=== PATIENT | male | born 1940 | race Caucasian/White ===

== ENCOUNTER → 2017-11-08 11:00 | Outpatient (POV) | payer MEDICARE, SELFPAY | PROVIDERS: Family Provider Family Medicine; Visit Provider Internal Medicine | DX: Z00.00 Encounter for general adult medical examination without abnormal findings (principal) ==

== ENCOUNTER → 2019-04-11 11:02 | Outpatient (CLI) | payer MEDICARE, SELFPAY ==
--- NOTE | 2019-04-11 11:22 | XR_ITS ---
PROCEDURE: XR CHEST 2V CLINICAL HISTORY: CHEST DISCOMFORT COMPARISON: CXR CHEST(2 VIEWS-NOT PORTABLE) from 12/01/2016 FINDINGS: Prior CABG. Normal heart size. Chronic interstitial changes. No lobar consolidation or collapse. Old left-sided rib fractures of the left 5th and 6th rib. Previously noted pleural based density on the previous exam is not apparent on today's study. IMPRESSION: Chronic changes, no acute finding Dictated by: Donn Gracia MD 04/12/2019 14:00 Electronically signed by Donn Garcia MD in [place] 04/12/2019 14:00
--- NOTE | 2019-04-11 11:22 | XR_ITS ---
PROCEDURE: XR CERVICAL SPINE 5V CLINICAL INDICATION: STIFF NECK Neck pain COMPARISON: No exams were available for comparison FINDINGS: There degenerative disc disease at C4-C5 C5-C6 C6-C7 and C7-T1. There is mild anterolisthesis of C7 on T1 of 2-3 mm. Mild facet arthritic changes are present from C2 to C7. Foraminal narrowing is present on the right at C4-5 and C5-C6. No fracture or dislocation. No lytic or blastic change. Incidental carotid artery calcifications are present. IMPRESSION: Cervical spondylosis with degenerative disc disease with mild right foraminal narrowing at C4-C5 and C5-C6 Dictated by: Donn Garcia MD 04/12/2019 13:59 Electronically signed by Donn Garcia MD in [place] 04/12/2019 13:59
== END ==
PROVIDERS: PCP Family Medicine; Visit Provider Family Medicine
DX: R07.89 Other chest pain (principal)
CPT/HCPCS: 71046; 72050

== ENCOUNTER → 2019-04-17 12:33 | Outpatient (CLI) | payer MEDICARE, SELFPAY ==
--- NOTE | 2019-04-17 12:35 | CT_ITS ---
PROCEDURE: CT ABDOMEN W CON CLINICAL HISTORY: WGT LOSS, ABD PAIN Mid epigastric pain, nausea, weight loss COMPARISON: No exams were available for comparison TECHNIQUE: 75 mL Optiray 350 performed in conjunction with the chest CT Axial images obtained with sagittal and coronal reformats. All CT scans at the facility use one or more dose reduction, viz: automated exposure control, ma/kV adjustment per patient size (including targeted exams where dose is matched to indication, i.e. head), or iterative reconstruction technique. FINDINGS: There is a small hiatal hernia. The liver, spleen, adrenal glands, and pancreas have an unremarkable appearance. There is a small gallstone present at approximately 5 mm. 8 mm right renal cyst and a 2 cm right parapelvic renal cyst. No intestinal obstruction or free air. No retroperitoneal or intraperitoneal adenopathy.. Mild degenerative changes of the lumbar spine. The pelvis is not included on the exam. IMPRESSION: 1. Small hiatal hernia. 2. Cholelithiasis Dictated by: Donn Garcia MD 04/18/2019 11:25 Electronically signed by Donn Garcia MD in [place] 04/18/2019 11:25
--- NOTE | 2019-04-17 12:35 | CT_ITS ---
PROCEDURE: CT CHEST W CON CLINICAL HISTORY: Chest pain, cough, weight loss COMPARISON: No exams were available for comparison TECHNIQUE: 75 mL Optiray 350 performed in conjunction with the chest CT Axial images obtained with sagittal and coronal reformats. All CT scans at the facility use one or more dose reduction, viz: automated exposure control, ma/kV adjustment per patient size (including targeted exams where dose is matched to indication, i.e. head), or iterative reconstruction technique. FINDINGS: Prior CABG. No mediastinal or hilar mass or adenopathy. No evidence of aortic aneurysm or central pulmonary embolus. There is extensive coronary artery calcification. No pericardial effusion. There is hyperinflation with bronchial thickening and there is diffuse prominence of the pulmonary interstitium with a few scattered noncalcified pulmonary nodules and calcified pulmonary nodules also noted. The noncalcified nodules measure up to 7 mm in the right upper lobe centrally and 6 mm in the right middle lobe. Multiple noncalcified nodules are present on the left as well measuring up to 7 mm along the major fissure inferiorly and 6 mm in the superior segment of the left lower lobe. Patchy infiltrate is present in the right lower lobe posteriorly. No effusions are evident. No acute bony anomalies. There is a small hiatal hernia IMPRESSION: . 1. Are multiple bilateral pulmonary nodules which are 7 mm or less. These are non-specific and could be inflammatory/infectious or neoplastic. Suggest 3 month follow-up to confirm short term stability. 2. COPD with chronic interstitial changes. 3. Patchy infiltrate in the right lower lobe Dictated by: Donn Garcia MD 04/18/2019 11:32 Electronically signed by Donn Garcia MD in [place] 04/18/2019 11:32
== END ==
PROVIDERS: PCP Family Medicine; Visit Provider Family Medicine
DX: R10.9 Unspecified abdominal pain (principal); R63.4 Abnormal weight loss
CPT/HCPCS: 71260; 74160; Q9967

== ENCOUNTER → 2020-02-22 09:40 | Outpatient (CLI) | payer MEDICARE, SELFPAY ==
[2020-02-22 14:24] LABS: Coronavirus 19 IgG Antibody Negative (Negative); Coronavirus 19 IgM Antibody Negative (Negative)
== END ==
PROVIDERS: Visit Provider Internal Medicine Gastroenterology
DX: Z01.818 Encounter for other preprocedural examination (principal); Z12.11 Encounter for screening for malignant neoplasm of colon
CPT/HCPCS: 36415; 86328

== ENCOUNTER 2020-02-25 06:57 | Day surgery (SDC) | payer MEDICARE, SELFPAY ==
[2020-02-25 07:16] VITALS: BP 155/76; PULSE 77; RESP 20; TEMP 36.4; O2SAT 97
--- NOTE | 2020-02-25 07:46 | HMH.ANESCL ---
[facility] Anesthesia Checklist - Structural Data Admitted From: Home Planned Operative Procedure/s: olonoscopy Consent for Planned Operative Procedure(s) Verified: Yes - Additional verifications Anesthesia Reactions: No - Airway Assessment C-Spine Mobility Assessed: Yes TMJ Mobility Assessed: Yes Dentition: Good Dentition - Neurological Assessment Level of Consciousness: Awake, Alert, Appropriate - Anesthesia Plan Anesthesia Risk discussed: Yes Anesthesia Plan: Verified ASA Class: III Anesthesia Type: MAC [facility] History I have reviewed the patient's past medical history: Yes Medical History: Reports:: Cancer (prostate), Coronary Artery Disease, Hyperlipidemia, Hypertension, Lung Disease (COPD) Denies:: Diabetes Mellitus Type 1, Diabetes Mellitus Type 2, Internal Pacemaker, MRSA, Seizures *Have you ever received a pneumonia vaccine?: Yes *Have you received a flu vaccine this season?: Yes Anesthesia experience/problems:: none Laterality Cases: Bilateral: Tonsillectomy Other Surgeries: No: Pacemaker Amputation: No - *Social History Last grade of school completed: High school graduate Alcohol Intake: never Substance Use Type: denies use *Occupational Status:: retired Housing: house Household Members: spouse *Travel in the last 8 weeks: None Family Hx:: Cancer
--- NOTE | 2020-02-25 07:49 | HMH.PROC ---
[facility] Procedure Note Procedure Note:: Colonoscopy Procedure Report: Colonoscopy with cold snare polypectomy Endoscopist: Sky Blum II, MD Referring physician: Shilpa Bruce M.D. Date of Procedure: February 25, 2020 Equipment: Olympus 180 variable stiffness pediatric colonoscope Sedation: MAC sedation Indication: Mr. Carpenter is a 80-year-old gentleman who is here for follow-up screening/surveillance colonoscopy secondary to a personal history of colon polyps. The patient had a colonoscopy in February 2006 and had 3 polyps (tubular adenomas x2/hyperplastic polyp x1) removed. His colonoscopy in October 2009 revealed 4 polyps (tubular adenomas x4) which were removed. His last colonoscopy in February 2018 revealed 10 diminutive colon polyps (tubular adenomas x9/small serrated adenoma x1). He reports no abdominal pain, weight loss, change in his bowel habits or rectal bleeding. He reports no family history of colon cancer. Procedure: Prior to the procedure, a history and physical exam was performed, and patient's medications and allergies were reviewed. The risks, benefits and alternatives of the sedation and procedure were discussed with the patient. All questions were answered and informed consent was obtained. The patient was brought to the procedure room. Patient identification and proposed procedure were verified by the physician and the nurse. The patient was placed in a left lateral decubitus position and the scope was passed under direct vision. Throughout the procedure, the patient's blood pressure, pulse, and oxygen saturations were monitored continuously. The colonoscopy was accomplished without difficulty. The patient tolerated the procedure well. Findings: On digital rectal examination there was normal rectal tone. There were no external hemorrhoids. The colonoscope was introduced through the anal canal to the rectum and advanced to the cecum. The ileocecal valve and appendiceal orifice were identified. The scope was advanced a short distance into the ileum which appeared grossly normal. The scope was then withdrawn into the colon. The cecum was normal. There was 4 diminutive colon polyps (ascending x1 (5 mm), descending x2 (3 and 5 mm mm) and sigmoid x1 (4 mm)) which were removed via cold snare polypectomy. There were scattered diverticuli throughout the descending and sigmoid colon (LEFT colon). The rectum itself was normal. There was evidence of mild radiation proctitis. Upon retroflexion within the rectum there were grade 1 internal hemorrhoids. The preparation was excellent throughout with [place] Preparation Score of 9. The cecal time was 12 minutes. Impression: 1. Diminutive colonic polyps x4 2. Left-sided diverticulosis 3. Grade 1 internal hemorrhoids Plan: Based upon the patient's age, we will discuss whether further surveillance/preventive colonoscopy is warranted. I will follow-up the polyp histology. I would encourage bulk fiber supplementation on a maintenance basis.
[2020-02-25 07:56] VITALS: O2SAT 97
[2020-02-25 08:10] VITALS: BP 73/45; PULSE 55; RESP 16; TEMP 36.4; O2SAT 94
[2020-02-25 08:25] VITALS: BP 98/56; PULSE 59; RESP 16; O2SAT 97
[2020-02-25 08:35] VITALS: BP 118/71; PULSE 54; RESP 16; O2SAT 96
[2020-02-25 08:45] VITALS: BP 137/67; PULSE 52; RESP 16; TEMP 36.4; O2SAT 99
== END 2020-02-25 08:50 | disposition home or self-care (01) ==
LOC: OUTP 07:01
PROVIDERS: PCP Family Medicine; Visit Provider Internal Medicine Gastroenterology
PROC: 0DJD8ZZ Inspection of Lower Intestinal Tract, Via Natural or Artificial Opening Endoscopic (ICD-10-PCS; CPT 45378; principal; 2020-02-25 08:00)
DX: Z12.11 Encounter for screening for malignant neoplasm of colon (principal); K62.7 Radiation proctitis; K63.5 Polyp of colon; K57.30 Diverticulosis of large intestine without perforation or abscess without bleeding; K64.0 First degree hemorrhoids; Z86.010 Personal history of colon polyps; Z85.46 Personal history of malignant neoplasm of prostate; I25.10 Atherosclerotic heart disease of native coronary artery without angina pectoris; E78.5 Hyperlipidemia, unspecified; I10 Essential (primary) hypertension; J44.9 Chronic obstructive pulmonary disease, unspecified; Z79.899 Other long term (current) drug therapy; Z90.89 Acquired absence of other organs
CPT/HCPCS: 45385; 88305

== ENCOUNTER → 2020-05-29 09:48 | Outpatient (CLI) | payer MEDICARE, SELFPAY ==
--- NOTE | 2020-05-29 09:54 | XR_ITS ---
PROCEDURE: XR LUMBAR SPINE MIN 4V CLINICAL INDICATION: LOW BACK PAIN Fatty the the T COMPARISON: CR XR CHEST 2V from 04/11/[address] ABDOMEN W CON from 04/17/2019 FINDINGS: There is normal alignment. No fracture or dislocation. Mild multilevel degenerative disc disease at L2-L3 L3-L4 and L5-S1. No lytic or blastic change. Generalized vascular calcification is noted. Severe osteoarthritic changes are present in the hips with subchondral cystic changes. Small sclerotic focus is present involving the right ilium medially. Other findings:None. IMPRESSION: Mild degenerative changes of the lumbar spine. 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 Dictated by: Donn Garcia MD 05/29/2020 15:31 Donn Garcia MD in [place] 05/29/2020 15:31
== END ==
PROVIDERS: PCP Family Medicine; Visit Provider Family Medicine
DX: M54.5 Low back pain (principal)
CPT/HCPCS: 72110

== ENCOUNTER 2020-07-24 14:56 | Emergency (ER) | payer MEDICARE, SELFPAY ==
[2020-07-24 15:05] VITALS: BP 126/74; PULSE 64; RESP 16; TEMP 36.6; O2SAT 99; BMI 23.1
[2020-07-24 15:32] VITALS: BP 126/74; PULSE 64; RESP 16; TEMP 36.6; O2SAT 99
--- NOTE | 2020-07-24 15:37 | HMH.EDUTC ---
[facility] [place] Clinical Impression: Close exposure to COVID-19 virus Disposition: Home, Self-Care Condition on Discharge: Good Instructions: DI for COVID-19 (Suspected or Confirmed ), COVID-19 Viral Test, COVID-19: Testing and Tracing, Preventing the Spread of Coronavirus Discharge Instructions Additional Instructions: *Monitor Temp, Over the counter Motrin or Tylenol as directed/as needed Tylenol every 4 hours and Motrin every 6 hours (as long as your family doctor has told you that you can take it) for fever or pain. and straight to ER if unable to lower temp less than 101.0 after medication given You were tested for today for COVID19 your test result should be back in the next 24-48 hours, you may call to the [facility] to see if your test results are back in the next 48 hours [phone] [facility] hours are 9am-9pm You was given a handout with instructions for Self Quarantine and Self isolation for while you wait on test results and what to do if they are positive If you are positive the Health Dept will be contacting you also Referrals: Felipa Bruce MD [Primary Care Provider] - As needed Time of Disposition: 15:38 Medical Decision Making - Raheel Inquiry Pt receiving controlled substance: No Raheel was queried for this patient: No Vital Signs: 07/24/20 15:05 07/24/20 15:32 Temperature 97.8 F 97.8 F Temperature Source Oral Pulse Rate 64 Pulse Rate [Right Brachial] 64 Respiratory Rate 16 16 Blood Pressure 126/74 Blood Pressure [Right Arm] 126/74 Blood Pressure Mean [Right Arm] 91 Blood Pressure Source [Right Arm] Automatic Cuff Blood Pressure Position [Right Arm] Sitting 02 Sat by Pulse Oximetry 99 Oxygen Delivery Method Room Air Orders (Tests/Meds): ORDERS Category Date Time Status Covid-19 Nasal PCR ([facility]) Routine Lab 07/24/20 15:00 [place] [facility] [place] - General Stated complaint: covid exposure Time Seen by Provider: 07/24/20 15:37 Mode of Arrival: Ambulatory Source of Information: Patient Limitations: No Limitations Description of Symptoms (Recalled from Triage Doc. by RN): PATIENT REQUESTING COVID TEST D/T HIS TESTING POSITIVE HEENT Symptoms (Recalled from RN notes): No Resp Symptoms (Recalled from RN notes): No Skin Symptoms (Recalled from RN notes): No MS Symptoms (Recalled from RN notes): No Functional Status (Recalled from RN notes): WNL - History of Present Illness Provider Complaint: Patient state that his tested positive for COVID yesterday and got her results back today and they recommended that he come in and get tested so he come in States that he is not having any symptoms - Related Data Home Medications Medication Instructions Recorded Confirmed Amlodipine Besylate [Norvasc 5mg 5 mg PO DAILY 03/13/18 02/25/20 tablet] Clopidogrel Bisulfate [Plavix 75mg 75 mg PO DAILY 03/13/18 02/25/20 Tab] Losartan Potassium 50 mg PO DAILY 03/13/18 02/25/20 Metoprolol Tartrate 50 mg PO BID 03/13/18 02/25/20 Rosuvastatin Calcium 40 mg PO DAILY 03/13/18 02/25/20 Tamsulosin HCl [Flomax 0.4mg 0.4 mg PO DAILY 03/13/18 02/25/20 capsule] Budesonide/Formoterol Fumarate 2 puffs IH BID PRN 02/20/20 02/25/20 [Symbicort 160-4.5 Mcg Inhaler] Allergies Allergy/AdvReac Type Severity Reaction Status Date / Time No Known Allergies Allergy Verified 03/13/18 11:33 - Worker's Comp Is this a Worker's Comp case?: No [facility] History - Hepatitis A Screen Drug use history?: No High risk sexual behaviors?: No History of sexually transmitted infection?: No Currently employed?: No Childcare worker?: No Do you have indoor plumbing?: Yes Do you have electricity?: Yes Attestation statement:: This patient has been screened for Hepatitis A risk factors. I have reviewed the patient's past medical history: Yes Medical History: Reports:: Cancer (prostate), Coronary Artery Disease, Hyperlipidemia, Hypertension, Lung Disease (COPD) Denies:: Diabetes Mellitus Type
--- NOTE | 2020-07-25 09:21 | PC.NURSE ---
patient notified of positive covid test
== END 2020-07-24 15:40 | disposition home or self-care (01) ==
PROVIDERS: Emergency Provider Nurse Practitioner; PCP Family Medicine
DX: U07.1 COVID-19 (principal); C61 Malignant neoplasm of prostate; I25.10 Atherosclerotic heart disease of native coronary artery without angina pectoris; E78.5 Hyperlipidemia, unspecified; J44.9 Chronic obstructive pulmonary disease, unspecified; I10 Essential (primary) hypertension
CPT/HCPCS: G0463; 99202; U0003

== ENCOUNTER 2022-08-07 00:08 | Emergency (ER) | payer MEDICARE, SELFPAY ==
[2022-08-07 00:21] VITALS: BP 154/82; PULSE 61; RESP 18; TEMP 36.5; O2SAT 98; BMI 23.1
--- NOTE | 2022-08-07 00:53 | HMH.EDGENADL ---
Discharge Plan Disposition Patient Disposition: Home, Self-Care Condition: Good Prescriptions Prescriptions: No Action budesonide-formoterol 10.2 GM HFA aerosol inhaler 2 puffs IH BID PRN (Reason: copd) losartan 50 MG tablet 50 mg PO DAILY clopidogrel 75 MG tablet 75 mg PO DAILY amlodipine 5 MG tablet 5 mg PO DAILY tamsulosin 0.4 MG capsule 0.4 mg PO DAILY metoprolol tartrate 50 MG tablet 50 mg PO BID rosuvastatin 40 MG tablet 40 mg PO DAILY Referrals Follow up/Referrals: Felipa Bruce MD [Primary Care Provider] - See instructions Activity Restrictions/Add. Instructions Additional Instructions/Restrictions: Keep Tegaderm dressing coverings in place until follow-up by primary care provider. Call primary care provider on Tuesday to arrange follow-up in the office within 1 week. Clinical Impressions Clinical Impression: Skin tear of forearm without complication Discharge ED Provider: Martínez Vieira General Adult HPI General Chief complaint: Wound/Laceration Stated complaint: AO 08/06/22 2300 injury left arm Time Seen by Provider: 08/07/22 00:22 Mode of Arrival: Ambulatory Source of Information: Patient Limitations: No Limitations Description of Symptoms (Recalled from ER Triage Doc. by RN): Patient states that roughly 45 minutes ago he slipped and fell off of his front porch while letting his dog out. States that he simply missed the first step on accident. C/O a burning on his left arm where the skin has been torn on his left arm from his elbow to his wrist. History of Present Illness HPI narrative: Patient complains of a left forearm skin injury. Slipped off of his porch and scraped his left forearm on the extensor surface either on the ground or the porch. He peeled the skin back from his wrist to his elbow. Denies any other injuries. Last tetanus immunization greater than 10 years ago. Related Data Home Medications Medication Instructions Recorded Confirmed amlodipine 5 mg tablet 5 mg PO DAILY bp 03/13/18 09/08/20 clopidogrel 75 mg tablet 75 mg PO DAILY heart. 03/13/18 09/08/20 losartan 50 mg tablet 50 mg PO DAILY bp 03/13/18 09/08/20 metoprolol tartrate 50 mg tablet 50 mg PO BID bp- 03/13/18 09/08/20 rosuvastatin 40 mg tablet 40 mg PO DAILY Cholesterol 03/13/18 09/08/20 tamsulosin 0.4 mg capsule 0.4 mg PO DAILY prostate 03/13/18 09/08/20 budesonide-formoterol HFA 160 2 puffs IH BID PRN copd 02/20/20 09/08/20 mcg-4.5 mcg/actuation aerosol inhaler Allergies Allergy/AdvReac Type Severity Reaction Status Date / Time No Known Allergies Allergy Verified 09/08/20 08:22 [facility] Disclaimer: The information contained in this section may have been updated after the patient was seen, as this information can be updated by other users. Social History Smoking Status: Never smoker alcohol intake: never substance use type: denies use current occupational status: other Travel in the last 8 weeks: None household members: spouse housing: house caffeine: Yes ROS Obtained: Yes Systems reviewed as appropriate & no additional complaints except as documented Constitutional Constitutional: Denies weakness Musculoskeletal Musculoskeletal: Denies numbness Integumentary/Breasts Skin/Breast: Reports wounds Neurologic Neurologic: Denies numbness and Denies weakness Physical Exam General General appearance: alert and in no apparent distress Chest Chest inspection: Present normal inspection and symmetric chest wall rise Respiratory Respiratory exam: Absent respiratory distress Cardiovascular Cardiovascular exam: Present regular rate Expanded Upper Extremity Exam Left: L/R Arms Top View: 1. senile skin tear 2. senile skin tear 3. senile skin tear Neurological Exam Neurological exam: Present alert and oriented X3; Absent motor sensory deficit Psychiatric Psychiatric exam: Present normal affect and normal mood Skin Skin
[2022-08-07 01:15] VITALS: BP 126/58; PULSE 62; RESP 18; TEMP 36.5; O2SAT 99
== END 2022-08-07 01:27 | disposition home or self-care (01) ==
PROVIDERS: Emergency Provider Emergency Medicine; PCP Family Medicine
DX: S51.812A Laceration without foreign body of left forearm, initial encounter (principal); W01.0XXA Fall on same level from slipping, tripping and stumbling without subsequent striking against object, initial encounter; Z23 Encounter for immunization
CPT/HCPCS: 90471; 90714; 90715; 99283; 99284

== ENCOUNTER → 2022-08-13 09:39 | Outpatient (CLI) | payer MEDICARE, SELFPAY ==
--- NOTE | 2022-08-13 09:53 | XR_ITS ---
FINAL REPORT CLINICAL HISTORY: chronic left knee pain FINDINGS: AP, lateral and oblique views of the left knee were obtained. There is no prior exam for comparison. There are changes from arthroplasty. The hardware is intact. No acute fracture or soft tissue abnormality. Surgical clips in the medial knee is likely from vascular surgery. IMPRESSION: No acute osseous abnormality of the left knee. Reviewed, Interpreted and Dictated by Gema Eubanks MD Transcribed by Catrachita Ahuja Authenticated and . [facility]
--- NOTE | 2022-08-13 09:53 | XR_ITS ---
FINAL REPORT CLINICAL HISTORY: chronic right knee pain FINDINGS: AP, lateral and oblique views of the right knee were obtained. There is no prior exam for comparison. There is no acute fracture or dislocation. There is degenerative joint disease most pronounced in the lateral compartment. The soft tissues are normal. Vascular calcifications are noted. There is no joint effusion. IMPRESSION: Degenerative change with no acute osseous abnormality of the right knee. Reviewed, Interpreted and Dictated by Gema Eubanks MD Transcribed by Catrachita Ahuja Authenticated and [facility]
== END ==
PROVIDERS: PCP Family Medicine; Visit Provider Orthopaedic Surgery
DX: M25.562 Pain in left knee (principal)
CPT/HCPCS: 73562

== ENCOUNTER → 2022-11-23 09:32 | Outpatient (CLI) | payer MEDICARE, SELFPAY ==
--- NOTE | 2022-11-23 09:43 | XR_ITS ---
FINAL REPORT CLINICAL HISTORY: knee replacement FINDINGS: 3 views of the left knee were obtained. There is no acute fracture or dislocation. There is a total joint prosthesis. There is no soft tissue abnormality. IMPRESSION: No acute process. Reviewed, Interpreted and Dictated by Awais Biggs MD Transcribed by Estevan Shell Authenticated and [facility]
--- NOTE | 2022-11-23 09:43 | XR_ITS ---
FINAL REPORT CLINICAL HISTORY: hip pain FINDINGS: 2 views of the left hip were obtained. There is no acute fracture or dislocation. There is marked joint space narrowing with subchondral sclerosis. There is osteophyte and degenerative cyst formation. There is a right hip prosthesis. There are multiple surgical clips in the projection of the prostate. IMPRESSION: Advanced left hip osteoarthritis. Reviewed, Interpreted and Dictated by Awais Biggs MD Transcribed by Estevan Shell Authenticated and [facility]
== END ==
PROVIDERS: PCP Family Medicine; Visit Provider Orthopaedic Surgery
DX: Z96.652 Presence of left artificial knee joint; M25.552 Pain in left hip; M25.562 Pain in left knee
CPT/HCPCS: 73502; 73562

== ENCOUNTER 2023-11-19 07:46 | Outpatient (CLI) | payer MEDICARE, SELFPAY ==
[2023-11-19 08:48] LABS: Basophils # 0.1 K/mm3 (0-0.2); Basophils % 1.2 % (0.1-2.0); Eosinophils # 0.6 K/mm3 (0.0-0.4); Eosinophils % 10.7 % (0.1-12.0); Hemoglobin 13.9 g/dL (14.1-18.0); Lymphocytes # 1.2 K/mm3 (0.7-4.5); Lymphocytes % 21.1 % (10-50); Mean Corpuscular HGB Conc 33.1 g/dL (31.8-35.4); Mean Corpuscular Hemoglobin 31.7 pg (27.0-31.2); Mean Corpuscular Volume 95.6 fl (80-94); Mean Platelet Volume 10.5 fl (7.4-10.4); Monocytes # 0.4 K/mm3 (0.1-1.0); Neutrophils # 3.5 K/mm3 (1.8-7.8); Neutrophils % 60.1 % (37.0-80.0); Platelet Count 124 K/mm3 (142-424); Red Blood Count 4.39 M/mm3 (4.60-6.20); Red Cell Distribution Width 15.1 % (11.5-17.5); White Blood Count 5.8 K/mm3 (4.8-10.8)
[2023-11-19 09:47] LABS: Alanine Aminotransferase 24 U/L (12-78); Albumin Level 3.4 g/dl (3.5-5.0); Albumin/Globulin Ratio 1.4 (1.1-1.8); Alkaline Phosphatase 94 U/L (38-126); Anion Gap 9.2 mEq/L (5-15); Aspartate Amino Transferase 32 U/L (17-59); Blood Urea Nitrogen 18 mg/dl (9-20); Calcium 9.5 mg/dl (8.4-10.2); Carbon Dioxide 26 mmol/L (22.0-30.0); Chloride 107 mmol/L (98-107); Chol/HDL Ratio 1.8 (1-3.5); Cholesterol 140 mg/dl (140-200); Estimated Glomerular Filt Rate 64 ml/min (>60); GFR (African American) 78 ML/MIN (>60); Globulin 2.5 g/dL (1.3-3.2); Glucose 85 mg/dl (74-100); HDL Cholesterol 76 mg/dl (40-60); Potassium 5.2 mmoL/L (3.5-5.1); Sodium 137 mmol/L (136-145); Total Protein,Serum 5.9 g/dl (6.3-8.2); Triglycerides 52 mg/dl (30-150); VLDL Cholesterol 10 mg/dL (0-40)
[2023-11-19 09:58] LABS: Direct LDL Cholesterol 59.55 mg/dL (100-129)
[2023-11-19 10:04] LABS: Free T4 (Free Thyroxine) 1.07 ng/dl (0.78-2.19)
[2023-11-19 10:06] LABS: 25-OH Vitamin D, Total 34.8 ng/mL (30-100)
[2023-11-19 10:17] LABS: Prostate Specific Ag Screen < 0.1 ng/ml (0.0-4.0)
[2023-11-19 10:26] LABS: Iron 87 ug/dL (49-181)
== END 2023-11-19 23:59 | disposition home or self-care (01) ==
LOC: UTC.OUT 07:47
PROVIDERS: PCP Family Medicine; Visit Provider Physician Assistant
DX: E78.00 Pure hypercholesterolemia, unspecified (principal); D64.9 Anemia, unspecified; E03.9 Hypothyroidism, unspecified; E55.9 Vitamin D deficiency, unspecified; Z12.5 Encounter for screening for malignant neoplasm of prostate
CPT/HCPCS: 36415; 80053; 80061; 82306; 83540; 84439; 84443; 85025; G0103

== ENCOUNTER 2023-12-13 08:37 | Outpatient (CLI) | payer MEDICARE, SELFPAY ==
[2023-12-13 09:28] LABS: Basophils # 0.1 K/mm3 (0-0.2); Basophils % 1.4 % (0.1-2.0); Eosinophils # 0.7 K/mm3 (0.0-0.4); Eosinophils % 11.5 % (0.1-12.0); Hematocrit 41.9 % (42.0-52.0); Hemoglobin 13.8 g/dL (14.1-18.0); Lymphocytes # 1.4 K/mm3 (0.7-4.5); Lymphocytes % 23.9 % (10-50); Mean Corpuscular HGB Conc 32.9 g/dL (31.8-35.4); Mean Corpuscular Hemoglobin 31.6 pg (27.0-31.2); Mean Platelet Volume 10.3 fl (7.4-10.4); Monocytes # 0.4 K/mm3 (0.1-1.0); Monocytes % 6.2 % (1.7-9.3); Neutrophils # 3.2 K/mm3 (1.8-7.8); Neutrophils % 57.1 % (37.0-80.0); Platelet Count 116 K/mm3 (142-424); Red Blood Count 4.37 M/mm3 (4.60-6.20); Red Cell Distribution Width 15.3 % (11.5-17.5); White Blood Count 5.7 K/mm3 (4.8-10.8)
[2023-12-13 10:24] LABS: Blood Urea Nitrogen 13 mg/dl (9-20); Calcium 9.5 mg/dl (8.4-10.2); Carbon Dioxide 28 mmol/L (22.0-30.0); Chloride 105 mmol/L (98-107); Estimated Glomerular Filt Rate 58 ml/min (>60); GFR (African American) 70 ML/MIN (>60); Glucose 84 mg/dl (74-100)
[2023-12-13 10:38] LABS: Potassium 4.9 mmoL/L (3.5-5.1)
[2023-12-13 10:56] LABS: Thyroid Stimulating Hormone 7.84 uIU/mL (0.465-4.68)
[2023-12-13 12:39] LABS: Anion Gap 10.9 mEq/L (5-15); Sodium 139 mmol/L (136-145)
[2023-12-13 15:41] LABS: Free T4 (Free Thyroxine) 1.35 ng/dl (0.78-2.19)
== END 2023-12-13 23:59 | disposition home or self-care (01) ==
LOC: LAB 08:38
PROVIDERS: PCP Family Medicine; Visit Provider Physician Assistant
DX: I10 Essential (primary) hypertension (principal); E03.9 Hypothyroidism, unspecified
CPT/HCPCS: 36415; 80048; 84439; 84443; 85025

== ENCOUNTER 2024-07-16 14:35 | Outpatient (RCR) | payer MEDICARE, SELFPAY ==
--- NOTE | 2024-07-16 15:54 | HMH.PTOPEV ---
PT Outpatient Evaluation Rehab PT Outpatient Evaluation Start: 07/16/24 15:29 Freq: Status: Active Protocol: Document 07/16/24 15:29 PHORNE (Rec: 07/16/24 15:54 PHORNE [id number]) E-signed By Guanakito Ortiz, PT Outpatient Therapy Subjective History Subjective History This is the initial PT eval for Nickolas Carpenter, 84 yowm who presents with c/o dizziness/ vertigo that has been present intermittently for 1-2 wks. He reports having similar previous episodes sparsely over the past 2 years, but none for several months. He reports these episodes last ~ 10 sec, maybe less, and are more prevalent with rolling from his R side to his L side in bed. He does report suffering 1 fall within the last 6 mos and he reports he bent over from standing to picker and sorter load and unload his dog when he fell forward. He reports suffering no injuries with this episode. He has PMH of HTN, CABG x 5 v , B TKA, B LILY, CCY. Chief Complaint Other Symptoms Relieved By Rest/Positioning Prior Functional Limitations None Current Functional Limitations None Level of pain today (0-10) 0 Balance Eval Hx of Falls Hx Falls Yes Number in last 6 months 1 Gait/Posture Asssessment General Gait Observation No Deviations/Normal Nystagmus Nystagmus Presence None Timed Up and Go Test 1. Is the Timed Up and Go test result > no or = to 12 seconds? 3. Is the Timed Up and Go Test result < yes 12 seconds? Oculomotor Gaze Oculomotor Gaze Nml: Vergence Smooth Pursuit Saccades VOR Cancellation Cover/Uncover Cross Cover Miscellaneous Dx PT Eval Objective Objective Pt with no symptoms reproduction during any occulomotor testing and no nystagmus with Shira-hallpike or Horizontal Roll testing. Currently he has no symptoms that he was suffering from previously. He does report during the time his symptoms were most prevalent, he had a sensation of sore throat and tenderness to his lateral neck on the L side, both of which have dissipated as well. Outpatient Therapy Assessment Impairments Problems/Impairmments Impaired Self Care/Self Management Prognosis Rehab Potential Innapropriate for Skilled Therapy Comment Currently pt has no symptoms requiring treatment. It is highly likely that he was suffering from an acute episode of BPPV based on extensive history at this time . Skilled therapy is not currently required, but pt was given HEP to perform incase symptoms return consisting of Woodward-Darhoff exercises. Clinical Impression Consistent with Diagnosis Yes Outpatient Therapy Plan of Care Treatment Plan May Include Eval/Re-Eval Yes Frequency Times per week 0 Duration Number of Weeks 0 Addendums This patient is a candidate for social No or vocational rehab? Patient/Guardian verbally acknowledges Yes understanding of treatment program and consents to further treatment? Patient/Guardian verbally acknowledges Yes understanding of diagnosis, prognosis and goals for treatment? Eval Complexity PT Charges [id number] - Moderate Complexity Shoulder/Elbow Eval Shoulder Objective Measurements Elbow Objective Measurements PHYSICIAN CERTIFICATION: I certify the specified therapy services for Nickolas Carpenter are required, authorized, and reviewed every 30 days.
== END 2024-07-16 23:59 | disposition home or self-care (01) ==
LOC: PT 14:35
PROVIDERS: PCP Family Medicine; Visit Provider Family Medicine
DX: R42 Dizziness and giddiness (principal)
CPT/HCPCS: 97163

== ENCOUNTER 2024-11-23 07:20 | Outpatient (CLI) | payer MEDICARE, SELFPAY ==
[2024-11-23 08:40] LABS: Alanine Aminotransferase 19 U/L (12-78); Albumin Level 3.5 g/dl (3.5-5.0); Albumin/Globulin Ratio 1.3 (1.1-1.8); Alkaline Phosphatase 89 U/L (38-126); Anion Gap 5.8 mEq/L (5-15); Aspartate Amino Transferase 32 U/L (17-59); Bilirubin,Total 0.9 mg/dl (0.2-1.3); Blood Urea Nitrogen 17 mg/dl (9-20); Calcium 9.8 mg/dl (8.4-10.2); Carbon Dioxide 27 mmol/L (22.0-30.0); Chloride 108 mmol/L (98-107); Chol/HDL Ratio 2.4 (1-3.5); Cholesterol 132 mg/dl (140-200); Estimated Glomerular Filt Rate 64 ml/min (>60); GFR (African American) 77 ML/MIN (>60); Globulin 2.8 g/dL (1.3-3.2); Glucose 84 mg/dl (74-100); HDL Cholesterol 55 mg/dl (40-60); Potassium 4.8 mmoL/L (3.5-5.1); Sodium 136 mmol/L (136-145); Total Protein,Serum 6.3 g/dl (6.3-8.2); Triglycerides 81 mg/dl (30-150); VLDL Cholesterol 16 mg/dL (0-40)
[2024-11-23 08:51] LABS: Direct LDL Cholesterol 50.05 mg/dL (100-129)
[2024-11-23 08:57] LABS: Free T4 (Free Thyroxine) 1.03 ng/dl (0.78-2.19)
[2024-11-23 09:11] LABS: Thyroid Stimulating Hormone 5.62 uIU/mL (0.465-4.68)
[2024-11-23 10:26] LABS: Microalbumin/Creatinine Ratio 9.8
[2024-11-23 10:28] LABS: Creatinine,Urine Random 100 mg/dL (Not Estab.)
== END 2024-11-23 23:59 | disposition home or self-care (01) ==
LOC: LAB 07:24
PROVIDERS: PCP Family Medicine; Visit Provider Family Medicine
DX: E55.9 Vitamin D deficiency, unspecified (principal); I10 Essential (primary) hypertension; E03.9 Hypothyroidism, unspecified; E78.00 Pure hypercholesterolemia, unspecified
CPT/HCPCS: 36415; 80053; 80061; 82043; 82570; 82652; 84439; 84443